=== PATIENT | male | born 1980 | race Hispanic/Latino ===

== ENCOUNTER 2023-08-27 01:10 | Emergency (ER) | payer OTHER ==
[~2023-08-27] VITALS: Ht 152.4 cm; Wt 83.6 kg
[2023-08-27 01:21] VITALS: BP 160/96; PULSE 85; RESP 16; O2SAT 98
[2023-08-27] MEDS: KETOROLAC 60 MG VIAL (30MG/ML) IM ONE (01:38)
[2023-08-27] MEDS ORDERED: CEPH500B PO (01:39)
[2023-08-27] MEDS ORDERED: PRED10TA23 PO (01:39)
== END 2023-08-27 01:49 | disposition home or self-care (01) ==
LOC: EDH 01:10
DX: L73.9 Follicular disorder, unspecified (principal); K64.8 Other hemorrhoids; Z88.8 Allergy status to other drugs, medicaments and biological substances
CPT/HCPCS: 99283; 96372; J1885